=== PATIENT | female | born 1970 | race African-American/Black ===

== ENCOUNTER 2017-02-12 20:14 | Emergency (ER) | payer BC | END 2017-02-12 21:38 | disposition home or self-care (01) | LOC: CED 20:14 | DX: T78.49XA Other allergy, initial encounter (principal); I10 Essential (primary) hypertension; F17.200 Nicotine dependence, unspecified, uncomplicated; Z98.890 Other specified postprocedural states | CPT/HCPCS: 36415; 96374; 96375; 99284; J1200; J2930 ==